=== PATIENT | male | born 1995 | race African-American/Black ===

== ENCOUNTER 2017-06-26 14:17 | Day surgery (SDC) | payer OTHER ==
[~2017-06-26 14:17] MED LIST: ACETAMINOPHEN 100 ML IV ONE; BUPIVACAINE HCL 0.25 % INJ/PF (2.5 MG/1 ML) 30 ML VIAL ONE; CEFAZOLIN 2 GM/D5W RTU 2 GM/50 ML RTUPB IV PRN; DEXMEDETOMIDINE INJ 80 MCG/20 ML VIAL IV ONE; FENTANYL CITRATE INJ/PF 100 MCG/2 ML AMPUL ONE; LIDOCAINE 0.5% INJ-PF (5 MG/ML) 50 ML SDV ONE; MIDAZOLAM 2 MG/2 ML INJ ONE; PROPOFOL INJ 200 MG/20 ML VIAL IV ONE
--- NOTE | 2017-06-26 14:50 | RADIOLOGY REPORT (SQ) ---
EXAM DESCRIPTION: CHEST SINGLE VIEW COMPLETED DATE/TIME: 06/26/2017 2:38 pm REASON FOR STUDY: PREOP COMPARISON: None. EXAM PARAMETERS: NUMBER OF VIEWS: One view. TECHNIQUE: Single frontal radiographic view of the chest acquired. RADIATION DOSE: NA LIMITATIONS: None. FINDINGS: LUNGS AND PLEURA: No opacities, masses or pneumothorax. No pleural effusion. MEDIASTINUM AND HILAR STRUCTURES: No masses. Contour normal. HEART AND VASCULAR STRUCTURES: Heart normal in size. Normal vasculature. BONES: No acute findings. HARDWARE: None in the chest. OTHER: No other significant finding. IMPRESSION: NO ACUTE RADIOGRAPHIC FINDING IN THE CHEST. TECHNICAL DOCUMENTATION: JOB ID: [id number] [employer]- All Rights Reserved
[2017-06-26 15:10] LABS: HEMATOCRIT 40.5 % (37.9-51.0); HEMOGLOBIN 13.5 g/dL (13.5-17.0); MEAN CORPUSCULAR HEMOGLOBIN 27.4 pg (27.0-33.4); MEAN CORPUSCULAR HGB CONC 33.4 g/dL (32.0-36.0); MEAN CORPUSCULAR VOLUME 82 fl (80-97); PLATELET COUNT 300 10^3/uL (150-450); RED BLOOD COUNT 4.93 10^6/uL (4.35-5.55); RED CELL DISTRIBUTION WIDTH 13.9 % (11.5-14.0); WHITE BLOOD COUNT 3.9 10^3/uL (4.0-10.5)
--- NOTE | 2017-06-26 15:36 | EKG REPORT ---
SEVERITY:- ABNORMAL ECG - SINUS RHYTHM ST ELEVATION SUGGESTS EARLY DEPOLARIZATION CHANGES : Confirmed by: Ilda Morejon 26-Jun-2017 15:36:23
[2017-06-26 15:46] LABS: APPEARANCE,URINE SLIGHTLY-CLOUDY; BILIRUBIN,URINE NEGATIVE (NEGATIVE); COLOR,URINE YELLOW; GLUCOSE, URINE NEGATIVE (NEGATIVE); KETONES,URINE NEGATIVE (NEGATIVE); LEUKOCYTE ESTERASE,URINE TRACE (NEGATIVE); NITRITE,URINE NEGATIVE (NEGATIVE); PROTEIN,URINE NEGATIVE (NEGATIVE); URINE SPECIFIC GRAVITY 1.028
[2017-06-26 16:09] LABS: ANION GAP 8 (5-19); BLOOD UREA NITROGEN 17 mg/dL (7-20); CALCIUM 9.5 mg/dL (8.4-10.2); CARBON DIOXIDE 29 mmol/L (22-30); CHLORIDE 106 mmol/L (98-107); GLUCOSE 78 mg/dL (75-110); POTASSIUM 4.1 mmol/L (3.6-5.0); SODIUM 142.8 mmol/L (137-145)
[2017-06-26] MEDS ORDERED: FENTANYL CITRATE INJ/PF 100 MCG/2 ML AMPUL IV PRN ×3 (16:24)
[2017-06-26] MEDS ORDERED: DIPHENHYDRAMINE HCL 50 MG/ML VIAL IV PRN (16:24)
[2017-06-26] MEDS ORDERED: PROMETHAZINE HCL INJ 25 MG/1 ML VIAL IV PRN (16:24)
[2017-06-26] MEDS ORDERED: ONDANSETRON HCL INJ/PF 4 MG/2 ML SDV IV PRN (16:24)
[2017-06-26] MEDS ORDERED: MEPERIDINE HCL/PF INJ 25 MG/1 ML DISP.SYRIN IV PRN (16:24)
[2017-06-26] MEDS: FENTANYL CITRATE INJ/PF 100 MCG/2 ML AMPUL ONE ×2 (18:04→18:09)
--- NOTE | 2017-06-26 18:04 | PDOC DISCHARGE SUMMARY ---
Discharge Summary (SDC) - Discharge Final Diagnosis: ORIF of right radial head fracture Date of Surgery: 06/26/17 Discharge Date: 06/26/17 Condition: Good Treatment or Instructions: Keep the splint dry clean and intact. Sling as needed Ice and elevate when resting. Follow-up in 10-14 days. No lifting or carrying or weightbearing. Prescriptions: Oxycodone HCl/Acetaminophen [Percocet 5-325 mg Tablet] 1 - 2 tab PO ASDIR PRN # 40 tablet PRN Reason: Discharge Diet: As Tolerated Respiratory Treatments at Home: Deep Breathing/Coughing Discharge Activity: No Driving, No Lifting/Push/Pulling, Slowly Increase Activity, Walk Frequently Home Care Assistance: None Needed Report the Following to Your Physician Immediately: Shortness of Breath, Vomiting, Increase in Pain, Fever over 101 Degrees, Unusual Bleeding, Redness, Swelling, Warmth, Increased Soreness, Drainage-Yellow, Drainage-Davis, Drainage- Green, Drainage-Foul Smelling
--- NOTE | 2017-06-26 18:12 | Operative Report ---
Operative Report DATE OF SURGERY: 06/26/17 PREOPERATIVE DIAGNOSIS: Displaced right radial head fracture. Nondisplaced coronoid fracture. Questionable medial collateral ligament tear POSTOPERATIVE DIAGNOSIS: Displaced right radial head fracture, nondisplaced coronoid fracture. Sprain of the medial collateral ligament right elbow OPERATION: Open reduction internal fixation of right radial head fracture SURGEON: DAISY RO ANESTHESIA: GA TISSUE REMOVED OR ALTERED: None COMPLICATIONS: None ESTIMATED BLOOD LOSS: Less than 10 mL INTRAOPERATIVE FINDINGS: As above. Stressing of the medial elbow did not have medial joint gapping under c arm. PROCEDURE: After receiving preoperative antibiotics the patient was brought to the operating room where he was induced and intubated in a supine position. A tourniquet was applied to the right upper extremity. Right upper extremity was prepped and draped in a normal sterile surgical fashion. Esmarch was used to exsanguinate the extremity and the tourniquet was inflated to 250 mmHg previous incision on the lateral aspect of the elbow was done. A Agusto approach to the radial head was done. The radial head and capitellar joint was exposed. Fracture was visualized. Using a freer elevator and skin block were able to reduce the fragment. Then the Whitefield elevator was used to distract the fragment to clean out the hematoma and cartilage fragments that were in the joint. I then proceeded to reduce the fracture and placed 2 K wire pins. I took orthogonal images to confirm placement of the K wires and the length of the K wires. One measured to be 25 and the other measured to be 23. I was able to screw the headless compression screws from [place] without difficulty. K wires were removed. Pictures were taken showing proper length screws. There is no evidence of protruding into the proximal radial ulnar joint. Entry point also showed that the screws were flushed for countersunk. Reduction was acceptable. Placed an range of motion with no blocking. Terminal pronation did give an audible clicking but I believe is not due to hardware is actually due to the fragment. Both irrigation was used to clean the surgical site and suction was used. No loose bodies were noted. The joint was cleaned off. We proceeded then to place a couple 0 Vicryl stitches into the annular ligament for repair and then 0 Vicryl ligaments for the extensor tendons. Muscles were approximated then we proceeded to use 0 Vicryl for the subcutaneous fat and 2-0 Vicryl for the dermis and 4-0 Monocryl for the skin. This was then covered with Steri-Strips. 4 x 4 dressing was applied followed by soft roll. Tourniquet was let down and then the drapes were removed. Extremity was overwrapped with soft roll and then a 4 inch Ortho-Glass long-arm splint was applied. This was overwrapped with an Balbir bandage and held in about 60 of flexion actively hardened. Patient then was extubated and sent to PACU in stable condition.
[2017-06-26] MEDS: HYDROMORPHONE HCL INJ/PF 2 MG/ML AMPULE ONE ×2 (18:20→18:30)
[2017-06-26] MEDS ORDERED: OXYCODONE-ACETAMINOPHEN 5-325 MG TABLET ONE (19:03)
[2017-06-26 20:20] VITALS: BP 143/90
--- NOTE | 2017-06-27 09:44 | RADIOLOGY REPORT (SQ) ---
EXAM DESCRIPTION: NO CHG FLUORO; ELBOW RIGHT AP/LAT COMPLETED DATE/TIME: 06/26/2017 7:39 pm REASON FOR STUDY: ORIF RT ELBOW S52.044A NONDISP FX OF CORONOID PROCESS OF RIGHT ULNA, INIT S52.121 A DISP FX OF HEAD OF RIGHT RADIUS, INIT FOR CLOS FX COMPARISON: None. FLUOROSCOPY TIME: 0.6 minutes. 8 images saved to PACS. TECHNIQUE: Intra-operative images acquired during surgical procedure to evaluate progress. NUMBER OF IMAGES: 80 images. LIMITATIONS: None. FINDINGS: Radial head fracture with placement of hardware. IMPRESSION: IMAGE(S) OBTAINED DURING PROCEDURE. COMMENT: Quality ID [id number]: Final reports for procedures using fluoroscopy that document radiation exp osure indices, or exposure time and number of fluorographic images (if radiation exposure indices are not available) Please consult full operative report of the attending physician for description of the procedure. TECHNICAL DOCUMENTATION: JOB ID: [id number] [employer]- All Rights Reserved
== END 2017-06-26 20:15 | disposition home or self-care (01) ==
LOC: OROUT 14:17
PROVIDERS: ATTEND Orthopaedic Surgery
PROC: 0PSH04Z Reposition Right Radius with Internal Fixation Device, Open Approach (ICD-10-PCS; principal; 2017-06-26 16:15)
DX: S52.044A Nondisplaced fracture of coronoid process of right ulna, initial encounter for closed fracture (principal); S52.121A Displaced fracture of head of right radius, initial encounter for closed fracture; S53.441A Ulnar collateral ligament sprain of right elbow, initial encounter; W19.XXXA Unspecified fall, initial encounter; Y93.67 Activity, basketball
CPT/HCPCS: 24665; 36415; 85027; 80048; 81001; 71045; 73070; 93005; 93010; J2250; J3010; J1170; J2704; J0690; J0131; J3490; 01740